=== PATIENT | female | born 1930 ===

== ENCOUNTER 2018-06-13 20:32 | Emergency (ER) | payer OTHER, MEDICARE ==
--- NOTE | 2018-06-13 20:46 | EDPHY ---
H & P Time Seen by Provider: 06/13/18 20:41 HPI/ROS: CHIEF COMPLAINT: Upper abdominal pain since 10:00 a.m. HISTORY OF PRESENT ILLNESS: This is an 87-year-old female who is status post cholecystectomy many years ago. Beginning at around 10 o'clock this morning, after she had been to jehov[employer]'s witness and after her morning breakfast, she started feeling on well with a sense of a burning discomfort in the upper abdomen. It does not radiate to the back or lower abdomen between the shoulder blades or into the chest. She thought it was heartburn so she took some of her Prevacid as well as 4 tablets of Maalox. While at times this discomfort would become markedly better, it never really left. There has been no associated shortness of breath diaphoresis or peripheral edema or unilateral leg swelling. Risk factors for coronary disease consist of her hypertension and age No family history of aneurysms. She never did smoke. She does not have aortic valve disease No personal or family history of DVT or PE. No immobilization or casting. No surgery or prolonged bedrest. No unilateral leg swelling. She has been having some left lower dental pain and a tooth with both posterior lingual and buccal cusps missing. She is to see a new dentist on Thursday for this. Per se the tooth has been achiness for a while and is not any worse lately. There has been no discharge or foul taste P: Not worse with eating or walking. In fact she went out shopping Q: Burning R: No radiation S: Mild to moderate T: Persistent since 10:00 a.m. REVIEW OF SYSTEMS: Constitutional: No fever, no chills. Eyes: No discharge No diplopia ENT: No sore throat. Cardiovascular: No chest pain, no palpitations. Respiratory: No cough, shortness of breath, or wheezing. Gastrointestinal: No nausea vomiting or diarrhea. No abdominal pain. Genitourinary: No hematuria or frequency. Musculoskeletal: No back pain. Skin: No rashes. Neurological: No headache. A 10 system review of systems was performed and is negative except for the noted findings in the HPI. Source: Patient - Medical/Surgical History Hx Asthma: No Hx Chronic Respiratory Disease: No Hx Diabetes: No Hx Cardiac Disease: No Hx Renal Disease: No Hx Cirrhosis: No Hx Alcoholism: No Hx HIV/AIDS: No Hx Splenectomy or Spleen Trauma: No Other PMH: HYPERTENSION. HIGH CHOLESTEROL. GALLBLADDER REMOVAL - Social History Smoking Status: Never smoked - Physical Exam Exam: General Appearance: Alert, no distress. Afebrile. Normal phonation. No respiratory distress. Eyes: Pupils equal and round no pallor or injection. No icterus ENT, Mouth: Mucous membranes slightly dry Pharynx without erythema or exudate. TM Clear. The left lower bicuspid is deeply carious but not tender to percussion and there is no active drainage at this time. No submandibular adenopathy. Neck: No adenopathy. Supple. No JVD. Trachea in midline. Respiratory: There are no retractions, lungs are clear to auscultation. Chest wall: Nontender to palpation. No crepitus. Cardiovascular: Regular rate and rhythm. Abdomen: There is no tenderness throughout the upper abdomen. There is no percussion sensitivity. No rebound or guarding. Neurological: Ox3. No motor weakness. Sensation intact. Gait nl. Skin: Warm and dry, no rashes. Musculoskeletal: No joint swelling. Extremities: No edema. Homans sign negative. No cords. Psychiatric: Normal affect. Patient is oriented X 3. There is no agitation Constitutional: Initial Vital Signs Temperature (C) 37.5 C 06/13/18 20:49 Heart Rate 118 H 06/13/18 20:49 Respiratory Rate 18 06/13/18 20:49 Blood Pressure 135/82 H 06/13/18 20:49 O2 Sat (%) 93 06/13/18 20:49 O2 Delivery Mode Room Air Allergies/Adverse Reactions: Penicillins Allergy (Verified 06/13/18 20:48) iv contrast Allergy (Mild, Uncoded 06/13/18 22:47) Home Medications: Medication Instructions Recorded Ecotrin 01/10/14 Gabapentin 01/10/14 Ibuprofen 01/10/14 Lisinopril 01/10/14 Simvastatin 01/10/14 Calcium Carbonate [Tums 500MG (*)] 06/13/18 Clindamycin 150 mg PO QID #20 cap 06/13/18 Famotidine [Pepcid 20 MG (*)] 20 mg PO DAILY #10 tab 06/13/18 Medical Decision Making - Diagnostics EKG Interpretation: EKG interpretation by me contemporaneously. This is sinus tachycardia with a rate of 112. Sinus rhythm. No ischemic changes. Left axis, no Q-waves. Imaging Results: Imaging Impressions Chest X-Ray 06/13/18 22:07 Impression: Underlying hyperinflation Central bronchitis. Moderate cardiac enlargement. Hiatal hernia.. Abdomen/Pelvis CT 06/13/18 22:17 Impression: 1. Large hiatal hernia. 2. Prior cholecystectomy. 3. Colonic diverticulosis without CT evidence of acute diverticulitis. Results called to Dr. Scott at 11:05 PM. Chest x-ray negative CT scan of Abdomen & Pelvis. Performed [without] IV contrast. Interpreted by radiologist. Films reviewed by me. Findings as follows: Hiatal hernia, normal liver, normal pancreas, normal spleen, diverticular disease without diverticulitis Imaging: Discussed imaging studies w/ call center representative Radiologist ED Course/Re-evaluation: She was given a GI cocktail as well as IV pantoprazole. This did afford her some relief. Initial EKG was negative, though tachycardic. Troponin 10 hours into the symptom picture was undetectable. Repeat at 3:00 a.m. Was likewise undetectable. D Dimer negative. Given the tenderness in the LLQ, CT ordered. As CCl so low = 33, will not use IV contrast. Chest x-ray show no signs of pneumonia. For the laboratory studies include the following: Normal electrolytes Normal renal function for age Normal white count Normal lipase Normal LFTs. CT scan the abdomen without, the contrast showed large hiatal hernia but no inflammatory changes within the liver spleen or pancreas as well as diverticular disease without diverticulitis, films reviewed on the PACs and case discussed with radiologist on-call. Repeat abdominal exam is benign without any abdominal tenderness. Case reviewed with family and the patient at length. There is a low risk but says ability of coronary disease but she does not want to be admitted and accepts the risk 1% of MACE. Heart score is 3 given her age and underlying hypertension. Given the fever, and the tooth ache though the tooth is not tender I will treat with clindamycin 150 mg four times daily for the next 5 days. Her reflux protocol will consist of Prevacid in the morning, 1 hr before meals. Pepcid in the evening. Differential Diagnosis: Diagnostic considerations include, but are not limited to, the following: URI, sinusitis, pharyngitis, otitis media, pneumonia, dental abscess, strep throat, gastritis, Gastroenteritis, dehydration, diverticulitis, hepatitis, pancreatitis, renal colic, kidney stones, ureterolithiasis, cholecystitis, appendicitis, gastritis, ACS, myocardial infarction, pneumothorax, pleurisy, pulmonary embolus, CHF, Pneumonia. - Data Points Laboratory Results: Laboratory Results 06/13/18 21:15 06/13/18 06/13/18 06/13/18 23:44 21:32 21:23 WBC RBC Hgb Hct MCV MCH MCHC RDW Plt Count MPV Neut % (Auto) Lymph % (Auto) Pepin % (Auto) Eos % (Auto) Baso % (Auto) Nucleat RBC Rel Count Absolute Neuts (auto) Absolute Lymphs (auto) Absolute Monos (auto) Absolute Eos (auto) Absolute Basos (auto) Absolute Nucleated RBC Immature Gran % Immature Gran # POC Sodium 142 mEq/L mEq/L (135-145) POC Potassium 3.7 mEq/L mEq/L (3.3-5.0) POC Chloride 101.0 mEq/L mEq/L (97-110) POC Total CO2 27 mEq/L mEq/L (22-31) POC BUN 18 mg/dL mg/dL (7-23) POC Creatinine 0.9 mg/dL mg/dL (0.6-1.0) POC Glucose 135 mg/dL H mg/dL (70-100) POC Calcium 10.6 mg/dL H mg/dL (8.5-10.4) POC Total Bilirubin 0.5 mg/dL mg/dL (0.1-1.4) POC AST 27 IU/L IU/L (14-46) POC ALT 22 IU/L IU/L (9-52) POC Alk Phosphatase 79 IU/L IU/L (38-126) POC Troponin I 0.00 ng/mL ng/mL 0.00 ng/mL ng/mL (0.00-0.08) (0.00-0.08) POC Total Protein 7.3 g/dL g/dL (6.3-8.2) POC Albumin 3.6 g/dL g/dL (3.5-5.0) Lipase 06/13/18 06/13/18 21:15 21:15 WBC 7.08 10^3/uL 10^3/uL (3.80-9.50) RBC 4.17 10^6/uL L 10^6/uL (4.18-5.33) Hgb 12.6 g/dL g/dL (12.6-16.3) Hct 37.4 % L % (38.0-47.0) MCV 89.7 fL fL (81.5-99.8) MCH 30.2 pg pg (27.9-34.1) MCHC 33.7 g/dL g/dL (32.4-36.7) RDW 13.3 % % (11.5-15.2) Plt Count 232 10^3/uL 10^3/uL (150-400) MPV 10.8 fL fL (8.7-11.7) Neut % (Auto) 56.0 % % (39.3-74.2) Lymph % (Auto) 20.5 % % (15.0-45.0) Pepin % (Auto) 16.4 % H % (4.5-13.0) Eos % (Auto) 5.9 % % (0.6-7.6) Baso % (Auto) 0.8 % % (0.3-1.7) Nucleat RBC Rel Count 0.0 % % (0.0-0.2) Absolute Neuts (auto) 3.96 10^3/uL 10^3/uL (1.70-6.50) Absolute Lymphs (auto) 1.45 10^3/uL 10^3/uL (1.00-3.00) Absolute Monos (auto) 1.16 10^3/uL H 10^3/uL (0.30-0.80) Absolute Eos (auto) 0.42 10^3/uL H 10^3/uL (0.03-0.40) Absolute Basos (auto) 0.06 10^3/uL 10^3/uL (0.02-0.10) Absolute Nucleated RBC 0.00 10^3/uL 10^3/uL (0-0.01) Immature Gran % 0.4 % % (0.0-1.1) Immature Gran # 0.03 10^3/uL 10^3/uL (0.00-0.10) POC Sodium POC Potassium POC Chloride POC Total CO2 POC BUN POC Creatinine POC Glucose POC Calcium POC Total Bilirubin POC AST POC ALT POC Alk Phosphatase POC Troponin I POC Total Protein POC Albumin Lipase 28 IU/L IU/L (23-300) Medications Given: Discontinued Medications Al Hydroxide/Mg Hydroxide (Maalox Susp) 30 ml PO ONCE ONE Stop: 06/13/18 21:07 Last Admin: 06/13/18 21:28 Dose: 30 ml Clindamycin (Clindamycin) 150 mg PO EDNOW ONE PRN Reason: Protocol Stop: 06/13/18 23:42 Last Admin: 06/13/18 23:48 Dose: 150 mg Famotidine (Pepcid) 20 mg PO EDNOW ONE Stop: 06/13/18 23:42 Last Admin: 06/13/18 23:48 Dose: 20 mg Hyoscyamine Sulfate (Levsin, Hyomax-Sl) 0.25 mg PO ONCE ONE Stop: 06/13/18 21:07 Last Admin: 06/13/18 21:28 Dose: 0.25 mg Pantoprazole Sodium (Protonix) 40 mg IVP EDNOW ONE Stop: 06/13/18 21:07 Last Admin: 06/13/18 21:28 Dose: 40 mg Point of Care Test Results: Chemistry 06/13/18 06/13/18 06/13/18 23:44 21:32 21:23 POC Sodium 142 mEq/L mEq/L (135-145) POC Potassium 3.7 mEq/L mEq/L (3.3-5.0) POC Chloride 101.0 mEq/L mEq/L (97-110) POC Total CO2 27 mEq/L mEq/L (22-31) POC BUN 18 mg/dL mg/dL (7-23) POC Creatinine 0.9 mg/dL mg/dL (0.6-1.0) POC Glucose 135 mg/dL H mg/dL (70-100) POC Calcium 10.6 mg/dL H mg/dL (8.5-10.4) POC Total Bilirubin 0.5 mg/dL mg/dL (0.1-1.4) POC AST 27 IU/L IU/L (14-46) POC ALT 22 IU/L IU/L (9-52) POC Alk Phosphatase 79 IU/L IU/L (38-126) POC Troponin I 0.00 ng/mL ng/mL 0.00 ng/mL ng/mL (0.00-0.08) (0.00-0.08) POC Total Protein 7.3 g/dL g/dL (6.3-8.2) POC Albumin 3.6 g/dL g/dL (3.5-5.0) D-Dimer D-Dimer Collection Date 06/13/18 D-Dimer Collection Time 21:15 D-Dimer (ng/ml) 224 Departure - Departure Disposition: Home, Routine, Self-Care Clinical Impression: Fever Qualifiers: Fever type: unspecified Qualified Code(s): R50.9 - Fever, unspecified Abdominal pain Qualifiers: Abdominal location: upper abdomen, unspecified Qualified Code(s): R10.10 - Upper abdominal pain, unspecified Condition: Good Instructions: Fever in Adults (ED), Acute Abdominal Pain (ED) Additional Instructions: Take her usual medications. Take the new medications as follows: Prevacid 30 mg in the morning 1 hr before eating Pepcid 20 mg in the evening Clindamycin 150 mg four times daily for 5 days Yogurt with active cultures twice daily for 7 days Even know your seen a dentist on Thursday, he needs to see her family physician in 2-3 days. Please call for re-examination 1st thing on Thursday, as tomorrow is a holiday If the upper abdominal distress becomes worse or the fevers greater than 101, you need to return to the ER Referrals: Audie Low, DO [Primary Care Provider] - As per Instructions Prescriptions: Clindamycin 150 mg PO QID #20 cap Famotidine [Pepcid 20 MG (*)] 20 mg PO DAILY #10 tab
[2018-06-13] MEDS ORDERED: PANTOPRAZOLE SODIUM 40 MG VIAL IVP ONE (21:06)
[2018-06-13] MEDS ORDERED: MAG HYDROX/AL HYDROX/SIMETH 30 ML UDCUP PO ONE (21:06)
[2018-06-13] MEDS ORDERED: HYOSCYAMINE SULFATE 0.125 MG TAB PO ONE (21:06)
[2018-06-13 22:54] LABS: PLATELET COUNT 232 10^3/uL (150-400)
[2018-06-13] MEDS ORDERED: CLINDAMYCIN 150 MG CAP PO ONE (23:41)
[2018-06-13] MEDS ORDERED: FAMOTIDINE 20 MG TAB PO ONE (23:41)
[2018-06-14 00:06] VITALS: BP 140/87
--- NOTE | 2018-06-14 13:37 | CPEKG ---
Test Reason : OPEN Blood Pressure : / mmHG Vent. Rate : 112 BPM Atrial Rate : 112 BPM P-R Int : 169 ms QRS Dur : 082 ms QT Int : 324 ms P-R-T Axes : 041 -27 027 degrees QTc Int : 443 ms Sinus tachycardia Borderline left axis deviation Confirmed by Ayad Ceja ([id number]) on 06/14/2018 1:37:13 PM Referred By: Confirmed By:Ayad Ceja
== END 2018-06-14 00:30 | disposition home or self-care (01) ==
LOC: CED 20:32
DX: R10.10 Upper abdominal pain, unspecified (principal); J40 Bronchitis, not specified as acute or chronic; K44.9 Diaphragmatic hernia without obstruction or gangrene; I10 Essential (primary) hypertension; E78.00 Pure hypercholesterolemia, unspecified; Z90.49 Acquired absence of other specified parts of digestive tract
CPT/HCPCS: 71046-PO; 74176-PO; 80053-PO; 84484-PO; 96374